=== PATIENT | female | born 1970 | race Caucasian/White ===

== ENCOUNTER 2017-05-17 21:13 | Emergency (ER) | payer MEDICAID, OTHER, SELFPAY ==
[~2017-05-17] VITALS: Ht 162.6 cm; Wt 65.9 kg
[2017-05-17 21:19] VITALS: BP 118/71
[2017-05-17] MEDS ORDERED: LIDOCAINE 1%, 20ML ONE (22:16)
[2017-05-17] MEDS ORDERED: DIPH,PERTUSS(ACELL),TET VAC/PF 0.5 ML IM-VACC ONE ×2 (22:17→22:30)
[2017-05-17] MEDS ORDERED: LIDOCAINE 1%, 10ML INFIL ONE (22:30)
[2017-05-17] MEDS ORDERED: AMOXICILLIN/CLAV 875-125MG TABLET PO ONE (23:30)
[2017-05-17] MEDS ORDERED: BACITRACIN ZINC OINT 500U/GM, 0.9 GM ONE (23:35)
== END 2017-05-18 00:26 | disposition home or self-care (01) ==
LOC: ED 23:59
DX: S51.832A Puncture wound without foreign body of left forearm, initial encounter (principal); W54.0XXA Bitten by dog, initial encounter; Y93.89 Activity, other specified; Y92.89 Other specified places as the place of occurrence of the external cause; Y99.8 Other external cause status
CPT/HCPCS: 12032; 73090; 90471; 90715; 99284; J3490